=== PATIENT | female | born 1970 | race Caucasian/White ===

== ENCOUNTER → 2016-09-20 | Outpatient (CLI) | payer BC ==
--- NOTE | 2016-09-20 10:11 | REPMRS ---
Patient History The patient states she had a clinical breast exam in Patient had first child at age 29. No known family history of cancer. Digital Woman Screen Mammo: September 20, 2016 - Exam #: [id number] Bilateral CC and MLO view(s) were taken. Technologist: Mervat Myers, Technologist Prior study comparison: September 22, 2015, digital woman screen mammo performed at [facility] to [facility]. September 14, 2014, digital woman screen mammo performed at [facility] to [facility]. FINDINGS: There are scattered fibroglandular densities. There has been no change in the appearance of the mammogram from the prior studies. There is a mild amount of residual fibroglandular tissue which is fairly symmetric. There is no interval development of dominant mass, architectural distortion, or clustered microcalcification suggestive of malignancy. ASSESSMENT: BI-RADS/ACR category 1 mammogram. Negative. Recommendation Routine screening mammogram in 1 year (for women over age 40). This mammogram was interpreted with the aid of an FDA-approved computer-aided dectection system. Electronically Signed By: Akil Robertson MD 09/20/16 1011
== END ==
LOC: M WHC 07:44
PROVIDERS: ATTEND Nurse Practitioner Family
DX: Z12.31 Encounter for screening mammogram for malignant neoplasm of breast (principal)

== ENCOUNTER → 2017-11-19 | Outpatient (CLI) | payer OTHER, MEDICAID | LOC: M WHC 07:52 | DX: Z12.31 Encounter for screening mammogram for malignant neoplasm of breast (principal) | CPT/HCPCS: 77067 ==